=== PATIENT | female | born 1980 | race Caucasian/White ===

== ENCOUNTER 2022-01-07 14:39 | Outpatient (CLI) | payer MEDICAID | END 2022-01-07 14:40 | disposition EMS.NT | LOC: EMS 14:39 | DX: S50.812A Abrasion of left forearm, initial encounter (principal); S50.811A Abrasion of right forearm, initial encounter; V48.5XXA Car driver injured in noncollision transport accident in traffic accident, initial encounter; W22.10XA Striking against or struck by unspecified automobile airbag, initial encounter; Y92.410 Unspecified street and highway as the place of occurrence of the external cause ==

== ENCOUNTER 2023-01-23 16:31 | Outpatient (CLI) | payer MEDICAID ==
[2023-01-23] MEDS ORDERED: iohexoL-300 100 ML VIAL ONE (16:38)
[2023-01-23] MEDS ORDERED: iohexoL-300 100 ML VIAL IVP ONE (19:30)
--- NOTE | 2023-01-24 16:58 | CT Report ---
PROCEDURE: SOFT TISSUE NECK W INDICATIONS: ENLARGED LYMPH NODES CONTRAST: 100mL Omni 300 TECHNIQUE: After the administration of intravenous contrast, 3.0 mm axial sections acquired from the sella to th e aortic arch. Additional oblique axial 3.0 mm sections acquired through the pharynx. 3 mm thick co autumn reformats were generated. For radiation dose reduction, the following was used: automated exp osure control, adjustment of mA and/or kV according to patient size. COMPARISON: Ultrasound dated 06/20/2022. FINDINGS: Image quality: Excellent. Lymph nodes: No enlarged lymph nodes seen throughout the neck. Vessels: Visualized vasculature appears patent. Neck spaces: The oropharynx, nasopharynx, and pharynx demonstrate no mucosal lesions. The vocal cor ds, false vocal cords, pyriform sinuses, epiglottis, vallecula, and tongue base all appear normal. E xtramucosal spaces appear unremarkable. Glands: The parotid and submandibular glands appear normal. The thyroid is normal in size and there are no incidental findings. Miscellaneous: Visualized brain and orbits appear normal. Lung apices appear clear. Superficial so ft tissues appear normal. Bones: No suspicious bony lesions. Visualized sinuses and mastoids appear unremarkable. IMPRESSION: 1. No lymphadenopathy is present. 2. Negative examination of the neck. Reviewed by: Farooq Banks MD on 01/24/2023 4:57 PM PDT Approved by: Farooq Banks MD on 01/24/2023 4:57 PM PDT Station ID: [id number]
== END 2023-01-23 16:32 | disposition home or self-care (01) ==
LOC: DI 16:31
PROVIDERS: ATTEND Nurse Practitioner Family
DX: R59.0 Localized enlarged lymph nodes (principal)
CPT/HCPCS: 70491; Q9967

== ENCOUNTER 2024-05-29 09:45 | Outpatient (CLI) | payer MEDICAID | END 2024-05-29 10:00 | disposition home or self-care (01) | LOC: LAB.N 09:45 | PROVIDERS: ATTEND Physician Assistant | DX: R30.0 Dysuria (principal) | CPT/HCPCS: 87086; 87181 ==